=== PATIENT | female | born 1950 | race Caucasian/White ===

== ENCOUNTER 2016-08-08 00:54 | Day surgery (SDC) | payer MEDICARE ==
[~2016-08-08 00:54] MED LIST: LEVO25TA5 PO; NOMED; OMEP20CA11 PO
[2016-08-08] MEDS ORDERED: 0.9% Sodium Chloride 1,000 ML IV SCH (06:00)
[2016-08-08] MEDS ORDERED: fentaNYL-PF 50 mCg/mL 2 mL Inj IVPUSH PRN (06:00)
[2016-08-08] MEDS ORDERED: Sodium Chloride LOK Flush 10 mL Syringe IV PRN (06:00)
== END 2016-08-08 23:59 | disposition home or self-care (01) ==
LOC: END 00:54
PROVIDERS: ATTEND Internal Medicine Gastroenterology
DX: D36.9 Benign neoplasm, unspecified site (principal); Z53.9 Procedure and treatment not carried out, unspecified reason

== ENCOUNTER 2016-09-21 09:35 | Day surgery (SDC) | payer MEDICARE ==
[~2016-09-21] VITALS: Ht 165.1 cm; Wt 68.0 kg
[~2016-09-21 09:35] MED LIST changes: -NOMED; +Sodium Chloride LOK Flush 10 mL Syringe IV PRN; +fentaNYL-PF 50 mCg/mL 2 mL Inj IVPUSH PRN
[2016-09-21 09:56] VITALS: BP 166/93; PULSE 63; RESP 14; O2SAT 98
[2016-09-21] MEDS: 0.9% Sodium Chloride 1,000 ML IV SCH ×2 (10:15→10:34)
[2016-09-21 10:46] VITALS: BP 143/82; PULSE 72; RESP 16; O2SAT 91
[2016-09-21 10:56] VITALS: BP 123/78; PULSE 77; RESP 16; O2SAT 97
[2016-09-21 11:06] VITALS: BP 139/75; PULSE 80; RESP 16; O2SAT 95
--- NOTE | 2016-09-21 13:35 | ENDO ---
[address] [address] ENDOSCOPY PROCEDURE PATIENT: ALEKS DOVE : 1950 MR#: [id number] ADMIT: 09/21/2016 JOB ID: [id number] DATE: 09/21/2016 PRIMARY PROVIDER: Talisha Mcgrath DO PROCEDURE: Colonoscopy. INDICATIONS: A 66-year-old female with a personal history of adenomatous colon polyps returning for surveillance. EQUIPMENT: [employer]. SEDATION: Versed 5 mg and 100 mcg fentanyl. COMPLICATIONS: None identified. BOWEL PREPARATION: Fair. Adequate exam. PROCEDURE IN DETAIL: After the risks and benefits were explained, written and verbal informed consent was obtained. The patient was brought into the endoscopy suite and placed into the left lateral decubitus position. Sedation was achieved as above. A digital rectal examination accomplished. No significant pathology appreciated. The scope was introduced into the rectum and advanced to the cecum as identified by the appendiceal orifice and ileocecal valve. The scope was slowly withdrawn to carefully examine the mucosa for any defects or lesions. Multiple direct views were made through the dentate line for exclusion of pathology. The colon was decompressed. The scope removed the patient who tolerated the procedure well. FINDINGS: Some mild diverticulosis was seen in the sigmoid region. No significant polyps, mass lesions, or inflammatory features identified throughout. ENDOSCOPIC DIAGNOSES: Diverticulosis. RECOMMENDATIONS: Considering past history of adenomatous colon polyps, repeat colonoscopy five years.
== END 2016-09-21 23:59 | disposition home or self-care (01) ==
LOC: END 09:35
PROVIDERS: ATTEND Internal Medicine Gastroenterology
DX: Z12.11 Encounter for screening for malignant neoplasm of colon (principal); Z86.010 Personal history of colon polyps; K57.30 Diverticulosis of large intestine without perforation or abscess without bleeding; R03.0 Elevated blood-pressure reading, without diagnosis of hypertension; E78.4 Other hyperlipidemia; E03.8 Other specified hypothyroidism; K21.9 Gastro-esophageal reflux disease without esophagitis; E04.1 Nontoxic single thyroid nodule; R12 Heartburn; Z85.828 Personal history of other malignant neoplasm of skin; Z87.891 Personal history of nicotine dependence
CPT/HCPCS: 99153; G0105; G0500; J7030